=== PATIENT | male | born 1950 | race Caucasian/White ===

== ENCOUNTER 2018-11-04 18:29 | Inpatient (IN) ==
[2018-11-04 19:06] LABS: BASO# 0.02 X1000 (0.0-0.2); BASO% 0.1 % (0.0-0.8); EOS# 0.04 X1000 (0.0-0.7); EOS% 0.2 % (0.0-10.0); HEMOGLOBIN 13.1 g/dL (14.0-18.0); IMM GRAN# 0.06 X1000 (0.0-0.04); IMM GRAN% 0.3 % (0.0-0.5); LYMPH# 0.71 X1000 (1.2-3.4); LYMPH% 3.8 % (20.5-51.1); MCH 30.2 PG (27-31); MCHC 33.6 g/dL (33-37); MCV 89.9 FL (81-99); MONO# 1.01 X1000 (0.11-0.59); MONO% 5.4 % (1.7-9.3); MPV 9.5 FL (7.4-10.4); NEUT# 16.84 X1000 (1.4-6.5); NEUT% 90.2 % (42.2-75.2); PLT 168 X1000 (130-400); RBC 4.34 XMIL (4.7-6.1); RDW 12.5 % (11.5-14.5); WBC 18.68 X1000 (4.8-10.8)
[2018-11-04 19:11] LABS: INR 1.08; PROTIME 14.9 Seconds (11.0-16.0)
[2018-11-04 19:12] LABS: PTT 39.3 Seconds (22.3-41.8)
--- NOTE | 2018-11-04 19:21 | Diag Imaging Result Doc PS360 ---
EXAM: CHEST-2 VIEWS - 11/04/2018 HISTORY: SOB TECHNIQUE: Chest two views COMPARISON: 07/15/2016 portable chest FINDINGS: Heart size is normal. There are stable left upper lobe granuloma and calcified left hilar lymph nodes from old granulomatous disease. There is ill-defined infiltrate at the left lower lobe which is suspicious for pneumonia. The right lung appears clear. There is no substantial pleural effusion or pneumothorax identified. IMPRESSION: Left lower lobe infiltrate suspicious for pneumonia. Electronically signed by Gorge Ribeiro 11/04/2018 7:18 PM
[2018-11-04 19:27] LABS: AGAP 18; ALB/GLOB RATIO 1.4; ALBUMIN 3.9 g/dL (3.5-5.0); ALKALINE PHOSPHATASE 76 U/L (32-122); BUN 20 mg/dL (8-22); CALCIUM 8.4 mg/dL (8.8-10.2); CHLORIDE 92 mmol/L (98-107); CK PROFILE 99 U/L (24-204); COSMO 267; CREATININE 0.9 mg/dL (0.7-1.2); ESTIMATED GFR > 60; GLUCOSE 224 mg/dL (70-104); GOT 14 U/L (10-34); GPT 13 U/L (10-44); POTASSIUM 4.5 mmol/L (3.5-5.1); SODIUM 128 mmol/L (136-145); TCO2 18 mmol/L (25-35); TOTAL BILIRUBIN 0.71 mg/dL (0.20-1.00); TOTAL PROTEIN 6.6 g/dL (6.3-8.3)
[2018-11-04] MEDS ORDERED: ROCEPHIN 2 GM in NS 50 ML IV ONE (19:45)
[2018-11-04] MEDS ORDERED: NS 1,000 ML IV ONE (19:48)
[2018-11-04] MEDS ORDERED: TYLENOL PO ONE (20:46)
--- NOTE | 2018-11-04 20:57 | Diag Imaging Result Doc PS360 ---
EXAM: CT HEAD W/O CONTRAST - 11/04/2018 HISTORY: EXPRESSIVE PHAGIA TECHNIQUE: CT head without contrast COMPARISON: 09/11/2011 FINDINGS: There is no evidence of intracranial hemorrhage, mass effect, midline shift, or hydrocephalus. There is an old small infarct at the right cerebellum similar to prior. There is no evidence of recent infarct, although acute infarcts may not be immediately visible. There is mild paranasal sinus disease noted. IMPRESSION: No visible acute intracranial abnormality. No hemorrhage or mass effect. This exam was performed using automated exposure control, adjustment of mA or kV according to patient size, and/or use of iterative reconstruction technique. Electronically signed by Gorge Ribeiro 11/04/2018 8:54 PM
[2018-11-04 21:00] LABS: URINE SOURCE CLEAN CATCH
[2018-11-04 21:09] LABS: BILIRUBIN URINE NEGATIVE (NEGATIVE); BLOOD URINE SMALL (NEGATIVE); COLOR YELLOW; GLUCOSE URINE NEGATIVE (NEGATIVE); KETONE URINE 20 mg/dL (NEGATIVE); LEUKOCYTES URINE NEGATIVE (NEGATIVE); NITRITE URINE NEGATIVE (NEGATIVE); PROTEIN URINE NEGATIVE (NEGATIVE); TURBIDITY URINE CLEAR (CLEAR); UROBILINOGEN URINE NORMAL (NORMAL)
[2018-11-04 21:11] LABS: UR EPITHELIAL CELLS <10 /HPF (<10); URINE BACTERIA NEGATIVE /HPF; URINE RBC <10 /HPF (<10); URINE WBC <10 /HPF (<10)
--- NOTE | 2018-11-04 22:09 | PROVIDER DOCUMENTATION ---
This chart was entered by Alysia Roberts Scribe, acting as scribe for Edward Khan MD. HPI-Neurological Disorder - General Chief Complaint: Shortness of Breath Stated Complaint: SOB Time Seen by Provider: 11/04/18 19:17 Source: patient, family Allergies/Adverse Reactions: Patient Allergies Allergy/AdvReac Type Severity Reaction Status Date / Time morphine Allergy NAUSEA Verified 10/25/13 13:52 hydromorphone HCl * AdvReac "makes me Verified 07/15/16 10:59 [From Dilaudid] addisony" Home Medications: Home Medication List Medication Instructions Recorded Confirmed Last Taken Type Aspirin 81 mg PO DAILY 11/08/12 07/15/16 07/15/16 History Clopidogrel [Plavix] 75 mg PO DAILY 11/08/12 07/15/16 07/15/16 History Insulin Human Regular [Humulin R] 10 unit SQ AC 11/08/12 07/15/16 07/15/16 History Isosorbide Mononitrate E.r. [Imdur] 30 mg PO DAILY 11/08/12 07/15/16 07/15/16 History Lisinopril/Hydrochlorothiazide 1 each PO BID 11/08/12 07/15/16 07/15/16 History [Lisinopril-Hctz 20-12.5 mg Tab] SIMVAstatin [Zocor] 40 mg PO QHS 11/08/12 07/15/16 07/15/16 History Sertraline [Zoloft] 100 mg PO DAILY 11/08/12 07/16/16 07/15/16 History Insulin Humulin 70/30 [Humulin 15 unit SUBQ BID 07/15/16 07/15/16 07/15/16 History 70/30] Acetaminophen [Tylenol] 650 mg PO Q6H PRN PRN #0 tablet 07/16/16 Unknown Rx Metoprolol [Lopressor] 12.5 mg PO BID 07/16/16 07/16/16 07/14/16 History - History of Present Illness-Neuro Nature of Presenting Problem: 68 yom presents w/ w/co night was on phone with and said "he wasn't making any sense."pt states he could hear but couldn't answer or make complete sentences. pt states episode lasted few hours and that it has never happened before. pt states he "feels bad all over," and was sob but not in er currently. pt has hx of dm, htn, high cholesterol, mix2 and 1 stent. pt is oriented to place and time. Review of Systems - Adult - REVIEW OF SYSTEMS - ADULT Constitutional: reports: no symptoms reported. denies: chills, fever, fatique, night sweats Eyes: reports: no symptoms reported Ears, Nose, Mouth & Throat: reports: no symptoms reported Cardiovascular: reports: no symptoms reported. denies: chest pain Respiratory: reports: see HPI, shortness of breath. denies: chronic cough, cough, dyspnea on exertion, excessive sputum production Gastrointestinal: reports: no symptoms reported Genitourinary: reports: no symptoms reported Musculoskeletal: reports: no symptoms reported Integumentary: reports: no symptoms reported Neurological: reports: see HPI, other (expreseed aphasia). denies: headache/migraines, loss of balance, numbness, paresthesia, seizure, slurred speech, syncope Psychiatric: reports: no symptoms reported Endocrine: reports: no symptoms reported Hematologic/Lymphatic: reports: no symptoms reported Allergic/Immunologic: reports: no symptoms reported All Other Systems: Reviewed and Negative Past History - Adult - PAST MEDICAL HISTORY-ADULT Review of Records: reports: Old Records Reviewed, Nursing Assessment Review, Medications Reviewed, Social history reviewed & non-contributory. Major Childhood Illnesses: reports: denies history Cardiovascular: reports: HTN, hyperlipidemia, [place] (x2) Respiratory: reports: denies history Gastrointestinal: reports: denies history Obstetrical/Gynecological: reports: denies history Genitourinary: reports: denies history Musculoskeletal: reports: denies history Neurological: reports: denies history Endocrine/Immune: reports: Diabetes Other Conditions: reports: denies history - PRIOR SURGERIES/PROCEDURES Surgical/Procedure History: reports: appendectomy, cardiac stent, tonsillectomy - IMMUNIZATION STATUS Childhood Immunizations: See Nurse Assessment Flu Vaccine: See Nurse Assessment - FAMILY HISTORY Family History: reviewed, not pertinent - SOCIAL HISTORY Smoking: non-smoker Substance Use: alcohol Alcohol Use Frequency: occasionally Physical Exam- Neurological - Physical Exam-Neuro Initial Vital Signs Reviewed: Yes General Appearance: appears well, alert, no apparent distress Eye Exam: bilateral eye: normal inspection, PERRL, EOMI HENMT: normocephalic/atraumatic, moist mucous membranes, normal ENT inspection Head Injury: no evidence of injury. negative: active bleeding, Mejia's Sign, contusions, lacerations, raccoon eyes Neck: non-tender, full range of motion, supple, normal inspection Respiratory: chest non-tender, lungs clear, normal breath sounds Cardiovascular: normal peripheral pulses, regular rate, rhythm Abdominal Exam: normal bowel sounds, non tender, soft Lymphatic: no adenopathy Peripheral Pulses: carotid (R): 2+, carotid (L): 2+ Extremity: normal range of motion, non-tender, normal inspection quality assurance assessor Exam: normal hearing, normal speech, PERRL. negative: abnormal eye position, abnormal gag reflex, abnormal pupil position, abnormal speech, facial asymmetry, facial droop, facial paresthesias, facial weakness, gaze palsy Motor/Sensory: no motor deficit, no sensory deficit, no pronator drift. negative: pronator drift (R), pronator drift (L), sensory deficit, weak motor strength RLE, weak motor strength LLE Neurologic: quality assurance assessor II-XII nml as tested, grossly normal, no motor/sensory deficits. negative: abnormal cerebellar tests, abnormal quality assurance assessor II-XII, aphasia, EOM palsy, facial droop, focal weakness Integumentary: normal color, normal turgor, warm/dry Psych/Mental Status: normal mood/affect, normal thought content, normal thought process, oriented x 3 - Glascow Coma Scale Best Eye Response: (4) open spontaneously Best Verbal Response: (5) oriented Best Motor Response: (6) obeys commands Total Glascow Score: 15 Progress - PLAN OF CARE/RESULTS Progress/Plan/Lab Results: Vital Signs - 8 hr 11/04/18 18:37 Temperature 99.3 F Pulse Rate 65 Respiratory Rate 20 Blood Pressure 120/69 O2 Sat by Pulse Oximetry 96 11/04/18 18:39 Influenza Screen - Final Nasopharyngeal Laboratory Results - last 24 hr 11/04/18 11/04/18 11/04/18 18:47 18:47 18:47 WBC 18.68 H RBC 4.34 L Hgb 13.1 L Hct 39.0 L MCV 89.9 MCH 30.2 MCHC 33.6 RDW Std Deviation 12.5 Plt Count 168 MPV 9.5 Immature Gran % (Auto) 0.3 Neut % (Auto) 90.2 H Lymph % (Auto) 3.8 L Jenkins % (Auto) 5.4 Eos % (Auto) 0.2 Baso % (Auto) 0.1 Immature Gran # (Auto) 0.06 H Neut # (Auto) 16.84 H Lymph # (Auto) 0.71 L Jenkins # (Auto) 1.01 H Eos # (Auto) 0.04 Baso # (Auto) 0.02 PT INR PTT (Actin FS) Sodium 128 L Potassium 4.5 Chloride 92 L Carbon Dioxide 18 L Anion Gap 18 BUN 20 Creatinine 0.9 Estimated GFR/1.73 m2 > 60 BUN/Creatinine Ratio 22 Glucose 224 H Calculated Osmolality 267 Calcium 8.4 L Total Bilirubin 0.71 AST 14 ALT 13 Alkaline Phosphatase 76 Creatine Kinase 99 Troponin T Zka-[id number]-Ytbhmjgaexu Pept 498 H Total Protein 6.6 Albumin 3.9 Globulin 2.7 Albumin/Globulin Ratio 1.4 Urine Source Urine Color Urine Turbidity Urine pH Ur Specific [place] Urine Protein Ur Glucose (Stick) Ur Ketones (Stick) Urine Blood Urine Nitrite Urine Bilirubin Urobilinogen Dipstick Urine Leukocytes Urine WBC (Auto) Urine RBC (Auto) U Epithel Cells (Auto) Urine Bacteria (Auto) 11/04/18 11/04/18 11/04/18 18:47 18:47 20:50 WBC RBC Hgb Hct MCV MCH MCHC RDW Std Deviation Plt Count MPV Immature Gran % (Auto) Neut % (Auto) Lymph % (Auto) Jenkins % (Auto) Eos % (Auto) Baso % (Auto) Immature Gran # (Auto) Neut # (Auto) Lymph # (Auto) Jenkins # (Auto) Eos # (Auto) Baso # (Auto) PT 14.9 INR 1.08 PTT (Actin FS) 39.3 Sodium Potassium Chloride Carbon Dioxide Anion Gap BUN Creatinine Estimated GFR/1.73 m2 BUN/Creatinine Ratio Glucose Calculated Osmolality Calcium Total Bilirubin AST ALT Alkaline Phosphatase Creatine Kinase Troponin T < 0.010 Itt-X-Gzpwqqkecng Pept Total Protein Albumin Globulin Albumin/Globulin Ratio Urine Source CLEAN CATCH Urine Color YELLOW Urine Turbidity CLEAR Urine pH 5.0 Ur Specific [place] 1.000 Urine Protein NEGATIVE Ur Glucose (Stick) NEGATIVE Ur Ketones (Stick) 20 A Urine Blood SMALL A Urine Nitrite NEGATIVE Urine Bilirubin NEGATIVE Urobilinogen Dipstick NORMAL Urine Leukocytes NEGATIVE Urine WBC (Auto) <10 Urine RBC (Auto) <10 U Epithel Cells (Auto) <10 Urine Bacteria (Auto) NEGATIVE Orders Category Date Time Status Cardiac Monitoring DIRECTED Care 11/04/18 18:44 Active Oxygen Therapy- ED Nursing DIRECTED Care 11/04/18 18:44 Active Saline Loc NOW Care 11/04/18 18:44 Active CHEST-2 VIEWS [RAD] Stat Exams 11/04/18 18:[address] HEAD W/O CONTRAST [CT] Stat Exams 11/04/18 19:46 Completed BLOOD CULTURE [BLDCUL] Stat Lab 11/04/18 18:00 Results CBC WITH ELECTRONIC DIFF [HEME] Stat Lab 11/04/18 18:47 Completed CK PROFILE [SP CHEM] Stat Lab 11/04/18 18:47 Completed COMPREHENSIVE METABOLIC PANEL [CHEM] Stat Lab 11/04/18 18:47 Completed INFLUENZA SCREEN A/B Stat Lab 11/04/18 18:39 Completed LEGIONELLA AG URINE [[place]] Stat Lab 11/04/18 20:50 Received PRO B-NATRIURETIC PEPTIDE Stat Lab 11/04/18 18:47 Completed PROCALCITONIN [[place]] Stat Lab 11/04/18 18:47 Received PROTIME WITH INR [[place]AG] Stat Lab 11/04/18 18:47 Completed PTT [COAG] Stat Lab 11/04/18 18:47 Completed SPUTUM CULTURE WITH GRAM STAIN [] Stat Lab 11/04/18 19:47 Uncollected STREP PNEUMO AG URINE [[place]] Stat Lab 11/04/18 20:50 Received TROPONIN T Stat Lab 11/04/18 18:47 Completed URINALYSIS W/POSS RFLX CULT [URINALYSIS] Stat Lab 11/04/18 20:50 Completed 0.9% Sodium Chloride Inj [Ns] 1,000 ml Med 11/04/18 19:48 Discontinued IV 999 mls/hr Acetaminophen [Tylenol] Med 11/04/18 20:46 Discontinued 650 mg PO NOW ONE CefTRIAXONE [Rocephin] 2 gm Med 11/04/18 19:45 Discontinued 0.9% Sodium Chloride Inj [Ns] 50 ml IV NOW CP/SOB/Palp >45 yrs of Age Stat Oth 11/04/18 18:44 Ordered Flu-Like Symptoms Stat Oth 11/04/18 18:40 Ordered EKG [EKG] Stat Ther 11/04/18 18:44 Ordered Result Diagrams: 11/04/18 18:47 11/04/18 18:47 - REASSESSMENT Reassessment #1 Time Reassessed: 22:08 Status: other (SPOKE TO DR. TITUS REGARDING THIS PATIENT WHO HAD EXPRESSIVE APHAGIA THIS PAST TUESDAY AND FOUND TO HAVE PNA. APPRECIATE DR. ARIELA DENISANC.E) - XRAY 1 XRAY: Bilateral XRAY Study: Chest (EXAM: CHEST-2 VIEWS - 11/04/2018 HISTORY: SOB TECHNIQUE: Chest two views COMPARISON: 07/15/2016 portable chest FINDINGS: Heart size is normal. There are stable left upper lobe granuloma and calcified left hilar lymph nodes from old granulomatous disease. There is ill-defined infiltrate at the left lower lobe which is suspicious for pneumonia. The right lung appears clear. There is no substantial pleural effusion or pneumothorax identified. IMPRESSION: Left lower lobe infiltrate suspicious for pneumonia. Electronically signed by [employer] 11/04/2018 7:18 PM) Impression: Abnormal Comparison with other Films: changes noted - CT/MRI 1 CT Study: Head (EXAM: CT HEAD W/O CONTRAST - 11/04/2018 HISTORY: EXPRESSIVE PHAGIA TECHNIQUE: CT head without contrast COMPARISON: 09/11/2011 FINDINGS: There is no evidence of intracranial hemorrhage, mass effect, midline shift, or hydrocephalus. There is an old small infarct at the right cerebellum similar to prior. There is no evidence of recent infarct, although acute infarcts may not be immediately visible. There is mild paranasal sinus disease noted. IMPRESSION: No visible acute intracranial abnormality. No hemorrhage or mass effect. This exam was performed using automated exposure control, adjustment of mA or kV according to patient size, and/or use of iterative reconstruction technique. Electronically signed by [employer] 11/04/2018 8:54 PM) Comparison with other Films: changes noted Departure - Departure Date of Disposition Decision: 11/04/18 Time of Disposition Decision: 22:09 DIAGNOSIS: Pneumonia, Neutrophilic leukocytosis, Expressive aphasia Disposition: ADMITTED INPATIENT 09 Certified Medical Emergency: Emergent Condition: Stable Referrals and Follow-Ups: Sherwin Araujo MD [Primary Care Provider] - - Critical Care Note This patient required my direct & personal management of CC.: No Attestation - Physician/ MARK Attestation Patient care was provided by Advanced Practice Provider:: No The physician spent face to face time with patient:: Yes Advanced Practice Provider documentation review:: Supervising physician onsite and consulted in the evaluation and care of this patient. The physician did have a face to face encounter with the patient. - NIH Stroke Scale NIH Type: Initial Evaluation Level of Consciousness: 0-Alert LOC Questions (ask month and age): 0-Answers Both Correctly LOC Commands (ask to open & close eyes;make a fist, let go): 0-Obeys Both Correctly Best Gaze (horizontal eye movement): 0-Normal Visual (use finger movement, counting or visual threat): 0-No Visual Loss Facial Palsy (show teeth or raise eyebrows & close eyes tght: 0-Symmetrical Mov ement Motor Function-left arm: 0-Normal Motor Function-right arm: 0-Normal Motor Function-left le-Normal Motor Function-right le-Normal Limb Ataxia(rnddfd-wvjh-nlixjb, or heel to lima): 0-No Ataxia Sensory(pin prick to face,arms,trunk,legs-compare side/side): 0-No Ataxia Best Language(name item/read sentence.Ex-Down to Earth): 0-No Aphasia Extinction and Inattention: 0-Normal Modified [place] Score Criteria: 0-no symptoms This chart was documented by the indicated scribe, (Alysia Roberts, Scribe) and accurately reflects the services I performed and decisions made by me, Edward Khan MD, as attested by the provider's signature.
[2018-11-04] MEDS ORDERED: ZOFRAN IV PRN (22:41)
[2018-11-04] MEDS ORDERED: DOXYCYCLINE 100 MG in NS 250 ML IV SCH (22:45)
--- NOTE | 2018-11-05 00:21 | HISTORY AND PHYSICAL ---
PRIMARY CARE PROVIDER: Sherwin Araujo. CHIEF COMPLAINT: Shortness of breath. HISTORY OF PRESENT ILLNESS: Mr. Yang is a 68-year-old male who has a past medical history of diabetes mellitus type 2, hypertension, hyperlipidemia, coronary artery disease, status post DE with cardiac stenting times 2 and previous CVA, who comes in with a complaint of feeling bad all over. Apparently, on night he was on the phone with his and per the he was not making any sense. Patient states that he could hear what she was saying but was unable to answer in complete sentences. Patient's stated that it lasted a couple of hours and then resolved. The patient states that he had just overall feelings of fatigue. He denied any type of related symptoms such as chest pain, visual changes, headache, nausea, vomiting. He did have complaint of diarrhea times 1 episode 1 day ago. He denies polydipsia, polyphagia or polyuria. Just an overall feeling of not feeling well. Chest x-ray in the ER showed a left lower lobe infiltrate suspicious for pneumonia. The patient will be admitted for further evaluation and treatment. PAST MEDICAL HISTORY: See HPI. 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 SOCIAL HISTORY: Lives at home with his . No tobacco or illicit drug use. He occasionally uses alcohol. FAMILY HISTORY: Positive for coronary artery disease in both parents. ALLERGIES: Morphine and hydromorphone. HOME MEDICATIONS: A list of home medications has not been reconciled. The patient takes Zocor, Humulin 70/30, Humulin R, Plavix, and aspirin and Imdur. I am unsure on the dosing. An order was placed for Nursing to reconcile home medications. This may not be an all inclusive list. REVIEW OF SYSTEMS: Fourteen point review of systems conducted with the patient. Pertinent positives listed above in the HPI. All other systems reviewed and found to be negative. PHYSICAL EXAMINATION: VITAL SIGNS: Temperature 99.3, pulse 65, respirations 20, blood pressure 120/69, oxygen saturation 96% on room air. GENERAL: A pleasant 68-year-old male lying in the ER stretcher, answers all questions appropriately, is alert and oriented times 3. HEENT: Head is atraumatic, normocephalic. Pupils equal, round, reactive to light. Extraocular eye movement intact. Sclerae are anicteric. Conjunctiva is pink. Oral mucosa is mildly dry. NECK: Supple. No JVD. No thyromegaly. Trachea is midline. No cervical lymphadenopathy. CARDIAC: S1, S2 appreciated. No murmurs, gallops, rubs. LUNGS: Decreased right greater than left. No rhonchi, wheezes, rales. Symmetric rise and fall with respirations. ABDOMEN: Soft, nondistended, nontender. Bowel sounds present all 4 quadrants. No pulsatile mass. No organomegaly. EXTREMITIES: Left xusxs-adg-okgmn amputation of upper extremity. All other extremities no clubbing, cyanosis or edema. Two-plus pedal pulses. SKIN: Warm, dry, intact. No acute lesions or rash. Appropriate color for race. Mild tenting of skin. DIAGNOSTIC DATA: CT of the head shows old small infarct in the right cerebellum similar to prior examination on 09/11/2011. Otherwise, no acute intracranial process. Chest x- ray: Left lower lobe infiltrate suspicious for pneumonia. LABORATORY DATA: WBC 18.68. Hemoglobin 13.1. Hematocrit 39. Platelet count 168. Sodium 128. Potassium 4.5. Chloride 92. Carbon dioxide 18. BUN 224. Urine unremarkable. ASSESSMENT AND PLAN: 1. Community-acquired pneumonia. We will treat with doxycycline and Rocephin. Patient denies any shortness of breath or cough at this time. 2. Diabetes mellitus type 2, now insulin dependent. We will put on sliding scale insulin with fingerstick blood sugars and restart home insulins when dosing is available. We will defer that to his primary care provider. 3. Questionable subacute transient ischemic attack. Apparently, patient had expressive aphasia on this previous . He is a known vasculopath. We will order an echo and carotid ultrasound. We will defer MRI to his primary care provider. 4. Hyperlipidemia. Recommend possible change to high dose atorvastatin from simvastatin. 5. Coronary artery disease status post myocardial infarction. Continue Plavix and aspirin. 6. Hypertension. We will continue home medications when medications are added to patient profile. Further recommendations per patient clinical course. Dictated by YOSEPH Francis for Maximino Rangel MD I have performed a face to face diagnostic evaluation. Labs/ Xrays - reviewed. Exam- chest - rhonchi, CV- regular A/P- Pneumonia- Admit patient, IV ABX Dr. Rangel cc: YOSEPH Francis MD Robert Allen, MD MTDD
[2018-11-05] MEDS: NS 1,000 ML IV SCH ×2 (01:53→20:00)
[2018-11-05] MEDS: HUMALOG SUBQ SCH ×8 (02:16→23:17)
[2018-11-05] MEDS: TYLENOL PO PRN ×4 (05:58→23:17)
[2018-11-05 07:16] LABS: BASO# 0.01 X1000 (0.0-0.2); BASO% 0.1 % (0.0-0.8); EOS# 0.02 X1000 (0.0-0.7); EOS% 0.1 % (0.0-10.0); HEMATOCRIT 34.3 % (42.0-52.0); HEMOGLOBIN 11.5 g/dL (14.0-18.0); IMM GRAN# 0.03 X1000 (0.0-0.04); IMM GRAN% 0.2 % (0.0-0.5); LYMPH# 0.77 X1000 (1.2-3.4); LYMPH% 5.5 % (20.5-51.1); MCH 30.3 PG (27-31); MCHC 33.5 g/dL (33-37); MCV 90.5 FL (81-99); MONO# 0.68 X1000 (0.11-0.59); MONO% 4.9 % (1.7-9.3); MPV 9.8 FL (7.4-10.4); NEUT# 12.43 X1000 (1.4-6.5); NEUT% 89.2 % (42.2-75.2); PLT 160 X1000 (130-400); RBC 3.79 XMIL (4.7-6.1); RDW 12.7 % (11.5-14.5); WBC 13.94 X1000 (4.8-10.8)
[2018-11-05 07:28] LABS: BANDS 4 % (0-1); LYMPHS 6 % (21-51); MONO 2 % (1-9); SEGS 88 % (42-75)
[2018-11-05 07:46] LABS: AGAP 17; BUN 16 mg/dL (8-22); CALCIUM 7.8 mg/dL (8.8-10.2); CHLORIDE 99 mmol/L (98-107); COSMO 269; CREATININE 0.8 mg/dL (0.7-1.2); ESTIMATED GFR > 60; GLUCOSE 161 mg/dL (70-104); POTASSIUM 4.2 mmol/L (3.5-5.1); SODIUM 132 mmol/L (136-145); TCO2 16 mmol/L (25-35)
[2018-11-05] MEDS: ASPIRIN PO SCH (09:51)
[2018-11-05] MEDS: PLAVIX PO SCH (09:51)
[2018-11-05] MEDS ORDERED: PNEUMOVAX 23 IM ONE (13:25)
--- NOTE | 2018-11-05 13:46 | PROGRESS NOTE ---
DATE: 11/05/2018 VITAL SIGNS: Temperature 102.9, respiration 76, blood pressure 130/44, O2 saturation on room air 95%. LABORATORY: Hemoglobin 11.5, hematocrit 34.3, white blood count 13,900 with 89% neutrophils. HISTORY: This is one of a few [facility] admissions for this 68-year-old white man who had fever for the past few days. He presented to the emergency room late last evening and chest x-ray revealed left lower lobe pneumonia. He was admitted in 2016 with pneumonia and treated with doxycycline and Rocephin. Flu tests were negative. Sputum culture and blood cultures were done. Legionella titer was obtained. He is placed on doxycycline and Rocephin. There also were some symptoms of a TIA prior to admission. Echocardiogram and carotid Dopplers have been ordered. PLAN: Continue antibiotics and await studies, laboratory and radiologic studies. cc: Sherwin Araujo MD
[2018-11-05] MEDS: DOXYCYCLINE 100 MG in NS 250 ML IV SCH ×2 (15:01→23:17)
[2018-11-05] MEDS: ROCEPHIN 1 GM in NS 50 ML IV SCH (20:00)
[2018-11-05] MEDS: ZOCOR PO SCH (20:01)
--- NOTE | 2018-11-06 02:11 | ECHO REPORT ---
ORDER DATE: 11/05/2018 MEASUREMENTS: Septal thickness 0.9, left ventricular internal diameter in diastole 4.4, posterior wall thickness 0.9, left ventricular internal diameter in systole 2.5. SUMMARY: 1. Adequate quality study. 2. The aortic valve is trileaflet and demonstrates mild sclerotic change particularly of the left coronary cusp. The aortic valve opening is adequate. Peak gradient across the aortic valve is 19 mmHg with a mean gradient of 10 mmHg. The aortic valve area by planimetry is 1.8 cm2. Very mild aortic stenosis is suggested. Mitral, tricuspid and pulmonic valves are without evidence of structural abnormality with mild mitral regurgitation and trace tricuspid regurgitation. The aortic root is normal in size. 3. Normal left ventricular dimensions is demonstrated. The left ventricle appears hyperdynamic with an estimated left ejection fraction greater than 70%. No regional wall motion abnormality is evident. The left atrium is mildly enlarged. The right atrium and right ventricle are normal in size with preserved right ventricular systolic function. 4. No pericardial effusion. 5. Appearance of the inferior vena cava suggests normal central venous pressure. cc: MD Bethel Dang CRNP Robert Allen, MD
[2018-11-06] MEDS: HUMALOG SUBQ SCH ×2 (05:44→05:58)
[2018-11-06] MEDS: TYLENOL PO PRN ×2 (05:54→20:16)
[2018-11-06] MEDS: PLAVIX PO SCH (08:19)
[2018-11-06] MEDS: ASPIRIN PO SCH (08:19)
[2018-11-06] MEDS: IMDUR PO SCH (08:25)
[2018-11-06] MEDS: LOPRESSOR PO SCH ×2 (08:25→20:16)
[2018-11-06] MEDS: ZOLOFT PO SCH (08:25)
--- NOTE | 2018-11-06 08:27 | EKG Report ---
Test Performed on : 11/04/2018 6:33:52 PM Test Reason : SOB Blood Pressure : / mmHG Vent. Rate : 066 BPM Atrial Rate : 066 BPM P-R Int : 122 ms QRS Dur : 082 ms QT Int : 412 ms P-R-T Axes : 022 022 040 degrees QTc Int : 431 ms Normal sinus rhythm. Normal ECG When compared with ECG of 16-JUL-2016 07:31, No significant change was found Unconfirmed Result
--- NOTE | 2018-11-06 08:56 | PROGRESS NOTE ---
DATE: 11/06/2018 VITAL SIGNS: Temperature 99.2 degrees, heart rate 68, respirations 17, blood pressure 129/48, O2 saturation on room air of 97%. LABORATORY: Blood sugar up to 319 last evening and 288 this morning. OBJECTIVE: Chest is clear to auscultation. Blood cultures reveal no growth at 48 hours. Echocardiogram shows minimal aortic stenosis and ejection fraction of 70%. PLAN: Continue intravenous doxycycline and Rocephin. Chest x-ray will be repeated tomorrow morning. Carotid ultrasound is pending. He has had no further syncopal episodes or dizziness. He complains with right ankle ganglion cyst. This is moderate size and not inflamed but tender. This will be aspirated in the office after discharge. cc: Sherwin Araujo MD
[2018-11-06] MEDS: HUMULIN 70/30 SUBQ SCH ×2 (09:54→16:38)
[2018-11-06] MEDS: NS 1,000 ML IV SCH ×2 (10:51→21:58)
[2018-11-06] MEDS: HUMULIN R SUBQ SCH ×2 (10:51→16:38)
[2018-11-06] MEDS: DOXYCYCLINE 100 MG in NS 250 ML IV SCH ×2 (10:52→21:59)
[2018-11-06] MEDS ORDERED: HUMULIN R SUBQ SCH (11:00)
[2018-11-06] MEDS: MOTRIN PO PRN (14:21)
[2018-11-06] MEDS: ROCEPHIN 1 GM in NS 50 ML IV SCH (20:16)
[2018-11-06] MEDS: ZOCOR PO SCH (20:16)
[2018-11-07] MEDS: MOTRIN PO PRN ×3 (03:12→21:03)
[2018-11-07] MEDS: HUMULIN R SUBQ SCH ×3 (06:16→18:13)
[2018-11-07] MEDS: NS 1,000 ML IV SCH ×3 (06:34→22:40)
[2018-11-07] MEDS: HUMULIN 70/30 SUBQ SCH ×2 (06:34→17:08)
[2018-11-07 07:46] LABS: BASO# 0.04 X1000 (0.0-0.2); BASO% 0.2 % (0.0-0.8); EOS# 0.14 X1000 (0.0-0.7); EOS% 0.8 % (0.0-10.0); HEMATOCRIT 38.4 % (42.0-52.0); HEMOGLOBIN 13.2 g/dL (14.0-18.0); IMM GRAN% 0.6 % (0.0-0.5); LYMPH# 0.96 X1000 (1.2-3.4); LYMPH% 5.6 % (20.5-51.1); MCH 30.6 PG (27-31); MCHC 34.4 g/dL (33-37); MCV 88.9 FL (81-99); MONO# 1.31 X1000 (0.11-0.59); MONO% 7.6 % (1.7-9.3); MPV 9.3 FL (7.4-10.4); NEUT# 14.64 X1000 (1.4-6.5); NEUT% 85.2 % (42.2-75.2); PLT 194 X1000 (130-400); RBC 4.32 XMIL (4.7-6.1); WBC 17.19 X1000 (4.8-10.8)
--- NOTE | 2018-11-07 07:53 | Diag Imaging Result Doc PS360 ---
EXAM: CHEST-2 VIEWS INDICATION: pneumonia TECHNIQUE: 2 views COMPARISON: 11/04/2018 FINDINGS: Left lower lobe pneumonia is again noted. It has increased in density as compared to the previous study. No other new consolidations are identified. Cardiac silhouette is stable. IMPRESSION: Worsening of left lower lobe pneumonia. Electronically signed by Tristen Roberts 11/07/2018 7:51 AM
[2018-11-07 08:00] LABS: EOS 1 % (1-10); LYMPHS 5 % (21-51); MONO 7 % (1-9); SEGS 87 % (42-75)
--- NOTE | 2018-11-07 08:37 | PROGRESS NOTE ---
DATE: 11/07/2018 SUBJECTIVE: Maximum temperature in the last 12 hours was 100.1. Temperature this morning is 98.2, heart rate 71, respirations 22, blood pressure 141/55, and O2 saturation on room air 97%. Chest x-ray shows increasing left lower lobe infiltrate and worsening of pneumonia. White blood count is up some at 17,000. He is eating fairly well. Blood cultures revealed no growth at 48 hours. OBJECTIVE: Lungs reveal slightly decreased breath sounds at the left base, but no rales. Abdomen is soft. PLAN: Change antibiotics to Levaquin. Doxycycline and Rocephin are discontinued. Legionella titer is pending. Also nebulizer treatments with albuterol and Atrovent are added q.i.d. cc: Sherwin Araujo MD
[2018-11-07] MEDS: LOPRESSOR PO SCH ×2 (09:16→21:03)
[2018-11-07] MEDS: IMDUR PO SCH (09:17)
[2018-11-07] MEDS: PLAVIX PO SCH (09:17)
[2018-11-07] MEDS: ASPIRIN PO SCH (09:17)
[2018-11-07] MEDS: ZOLOFT PO SCH (09:17)
[2018-11-07] MEDS: LEVAQUIN 750 MG in NS 150 ML IV SCH (09:30)
[2018-11-07] MEDS: DUONEB (A & A) INH SCH ×3 (10:00→20:17)
[2018-11-07] MEDS: TYLENOL PO PRN ×2 (12:13→17:56)
--- NOTE | 2018-11-07 15:16 | Carotid Study ---
DATE: 11/05/2018 PROCEDURE: Bilateral carotid ultrasound. REQUESTING PHYSICIAN: Lazaro Umanzor MD INTERPRETING PHYSICIAN: Wade Lord MD TECH: Stephanie Bloom RVT INDICATIONS: TIA with speech problems. EQUIPMENT: [employer] E9 Ultrasound System with a 9L-D transducer. OBSERVED DATA RIGHT LEFT Brachial Blood Pressure Carotid Pulse Bruits: Carotid/Sub DIAGRAM OF ULTRASOUND IMAGING R L RIGHT INT EXT INT EXT LEFT Andre (cm/s) Andre (cm/s) Subclavian 116/0 Subclavian 117/0 CCA Proximal 74/11 CCA Proximal 86/14 CCA Distal 73/15 CCA Distal 107/21 Bulb 78/16 Bulb 125/20 ICA Proximal 66/19 ICA Proximal 95/21 ICA Mid 82/24 ICA Mid 74/21 ICA Distal 88/23 ICA Distal 86/26 ECA 100/7 ECA 125/4 Vertebral 59/16 A Vertebral 40/11 A ICA/CCA Ratio 1.19 ICA/CCA Ratio 0.89 % Stenosis 0%-39% % Stenosis 0%-39% FINDINGS: Minimal atherosclerosis which at this time does not produce hemodynamically significant flow-limiting stenosis. Both vertebral arteries are antegrade flow. cc: MD Bethel Cassidy CRNP Robert Allen, MD
[2018-11-07] MEDS ORDERED: INSULIN PEN NEEDLES ONE (17:19)
[2018-11-07] MEDS: HUMALOG SUBQ SCH (21:03)
[2018-11-07] MEDS: ZOCOR PO SCH (21:03)
[2018-11-08] MEDS: TYLENOL PO PRN ×3 (00:16→20:55)
[2018-11-08] MEDS: MOTRIN PO PRN ×3 (01:51→22:43)
[2018-11-08] MEDS: DUONEB (A & A) INH SCH ×4 (03:48→21:10)
[2018-11-08] MEDS: HUMULIN 70/30 SUBQ SCH ×2 (06:34→16:54)
[2018-11-08] MEDS: HUMALOG SUBQ SCH ×4 (06:35→21:02)
--- NOTE | 2018-11-08 07:59 | PROGRESS NOTE ---
DATE: 11/08/2018 SUBJECTIVE: Vital signs stable with temperature 97.5 degrees, heart rate 71, respiration 18, blood pressure 134/55, O2 saturation on room air 95%. The patient seems to be improving. He still has some cough and shortness of breath. There is mild whitish sputum production. Decreased breath sounds persisted at the left base. PLAN: Repeat CBC tomorrow morning. cc: Sherwin Araujo MD
[2018-11-08] MEDS: ASPIRIN PO SCH (08:37)
[2018-11-08] MEDS: ZOLOFT PO SCH (08:37)
[2018-11-08] MEDS: LOPRESSOR PO SCH ×2 (08:37→20:55)
[2018-11-08] MEDS: IMDUR PO SCH (08:37)
[2018-11-08] MEDS: PLAVIX PO SCH (08:37)
[2018-11-08] MEDS: LEVAQUIN 750 MG in NS 150 ML IV SCH (08:38)
[2018-11-08] MEDS: NS 1,000 ML IV SCH (13:10)
[2018-11-08] MEDS: ZOCOR PO SCH (20:55)
[2018-11-09] MEDS: NS 1,000 ML IV SCH ×2 (02:30→18:06)
[2018-11-09] MEDS: MOTRIN PO PRN ×2 (02:32→16:51)
[2018-11-09] MEDS: DUONEB (A & A) INH SCH ×4 (03:17→21:10)
[2018-11-09] MEDS: HUMALOG SUBQ SCH ×4 (06:12→20:54)
[2018-11-09] MEDS: HUMULIN 70/30 SUBQ SCH ×2 (06:12→16:57)
[2018-11-09 06:18] LABS: BASO# 0.03 X1000 (0.0-0.2); BASO% 0.2 % (0.0-0.8); EOS# 0.48 X1000 (0.0-0.7); EOS% 3.6 % (0.0-10.0); HEMATOCRIT 32.9 % (42.0-52.0); HEMOGLOBIN 11.2 g/dL (14.0-18.0); IMM GRAN# 0.12 X1000 (0.0-0.04); IMM GRAN% 0.9 % (0.0-0.5); LYMPH# 0.94 X1000 (1.2-3.4); LYMPH% 7.1 % (20.5-51.1); MCH 30.2 PG (27-31); MCV 88.7 FL (81-99); MONO# 0.82 X1000 (0.11-0.59); MONO% 6.2 % (1.7-9.3); MPV 9.2 FL (7.4-10.4); NEUT# 10.93 X1000 (1.4-6.5); PLT 274 X1000 (130-400); RBC 3.71 XMIL (4.7-6.1); WBC 13.32 X1000 (4.8-10.8)
[2018-11-09 06:28] LABS: AGAP 17; ALB/GLOB RATIO 0.7; ALBUMIN 2.3 g/dL (3.5-5.0); ALKALINE PHOSPHATASE 101 U/L (32-122); BUN 12 mg/dL (8-22); CALCIUM 8.2 mg/dL (8.8-10.2); CHLORIDE 108 mmol/L (98-107); COSMO 287; CREATININE 0.6 mg/dL (0.7-1.2); ESTIMATED GFR > 60; GLUCOSE 174 mg/dL (70-104); GOT 142 U/L (10-34); GPT 79 U/L (10-44); MAGNESIUM 1.7 mg/dL (1.5-2.7); POTASSIUM 3.6 mmol/L (3.5-5.1); SODIUM 142 mmol/L (136-145); TCO2 17 mmol/L (25-35); TOTAL BILIRUBIN 0.44 mg/dL (0.20-1.00); TOTAL PROTEIN 5.7 g/dL (6.3-8.3)
[2018-11-09] MEDS ORDERED: LANOXIN IV ONE (07:29)
[2018-11-09] MEDS ORDERED: CARDIZEM LA PO ONE (07:30)
--- NOTE | 2018-11-09 07:37 | EKG Report ---
Test Performed on : 11/09/2018 05:38:26 AM Test Reason : Tachycardia Blood Pressure : / mmHG Vent. Rate : 138 BPM Atrial Rate : 150 BPM P-R Int : 000 ms QRS Dur : 088 ms QT Int : 298 ms P-R-T Axes : 000 012 241 degrees QTc Int : 451 ms Atrial fibrillation. with rapid ventricular response. with premature ventricular or aberrantly conduc panchito complexes. ST depression, consider subendocardial injury Nonspecific T wave abnormality Abnormal ECG When compared with ECG of 04-NOV-2018 18:33, (Unconfirmed) Significant changes have occurred Confirmed by Aruna BROWN, Ulysses ([id number]) on 11/09/2018 8:53:35 AM
--- NOTE | 2018-11-09 07:54 | PROGRESS NOTE ---
DATE: 11/09/2018 VITAL SIGNS: Temperature 98.2 degrees, heart rate irregular and 120, respirations 20, blood pressure 152/87, O2 saturation on 2 liters nasal oxygen 99%. LABORATORY: Hemoglobin 11.2, hematocrit 32.9, white blood count 13,300. IMAGING: EKG: Atrial fib. SUBJECTIVE: Patient was doing well until early this morning when he developed a rapid heart rate and palpitations. EKG was done revealing atrial fibrillation. The patient seems to be doing well otherwise. OBJECTIVE: Heart: Irregular in rate and rhythm. Lungs: Reveal decreased breath sounds at the left base, unchanged. PLAN: Attempt conversion of atrial fibrillation with medication. If his atrial fibrillation persists by this afternoon, he will need some anticoagulant and possibly Cardiology consult. cc: Sherwin Araujo MD
[2018-11-09] MEDS: LEVAQUIN 750 MG in NS 150 ML IV SCH (08:27)
[2018-11-09] MEDS: ASPIRIN PO SCH (08:28)
[2018-11-09] MEDS: ZOLOFT PO SCH (08:28)
[2018-11-09] MEDS: IMDUR PO SCH (08:28)
[2018-11-09] MEDS: PLAVIX PO SCH (08:28)
[2018-11-09] MEDS: LOPRESSOR PO SCH ×2 (08:28→16:51)
[2018-11-09] MEDS: TYLENOL PO PRN ×2 (14:04→22:25)
--- NOTE | 2018-11-09 14:51 | Diag Imaging Result Doc PS360 ---
CT THORAX W/O CONTRAST - 11/09/2018 INDICATION: left lower lobe pneumonia/atrial fibrillation COMPARISON: 11/07/2018, 07/15/2016 FINDINGS: There is dense consolidation of the left lower lobe with air bronchograms compatible with pneumonia. There are trace bilateral pleural effusions that are symmetric. There is also a trace pericardial effusion. Heart size is normal. There is coronary artery disease and anemia present. No adenopathy. Airways are clear. There is right upper lobe infiltrate now that did not appear to be present on the prior chest x-ray. There is severe COPD. Upper abdominal images appear normal. There is severe degeneration of the sternoclavicular joints. There are moderate degenerative changes of the spine. No acute or suspicious bony lesion. IMPRESSION: 1. Severe left lower lobe pneumonia. Right upper lobe pneumonia. 2. Bilateral pleural effusions. 3. Severe COPD. This exam was performed using automated exposure control, adjustment of mA or kV according to patient size, and/or use of iterative reconstruction technique Electronically signed by Lamonte Byrd 11/09/2018 2:48 PM
[2018-11-09] MEDS ORDERED: LOVENOX SUBQ SCH ×2 (15:45→16:48)
[2018-11-09] MEDS ORDERED: CARDIZEM 100 MG/NS 100 MG/100 ML IVPB IV SCH (16:00)
[2018-11-09] MEDS ORDERED: LANOXIN IV SCH (16:00)
--- NOTE | 2018-11-09 16:22 | EKG Report ---
Test Performed on : 11/09/2018 4:06:53 PM Test Reason : afib Blood Pressure : / mmHG Vent. Rate : 063 BPM Atrial Rate : 063 BPM P-R Int : 116 ms QRS Dur : 088 ms QT Int : 434 ms P-R-T Axes : 045 017 034 degrees QTc Int : 444 ms Normal sinus rhythm. Normal ECG When compared with ECG of 09-NOV-2018 05:38, Sinus rhythm. has replaced Atrial fibrillation. Vent. rate has decreased BY [address] no longer depressed in Inferior leads ST no longer depressed in Anterolateral leads Nonspecific T wave abnormality no longer evident in Lateral leads Confirmed by Aruna BROWN, Ulysses ([id number]) on 11/10/2018 12:57:41 PM
[2018-11-09] MEDS: CARDIZEM PO SCH ×2 (16:51→19:49)
--- NOTE | 2018-11-09 18:44 | CARDIOLOGY CONSULTATION ---
DATE: 11/09/2018 CHIEF COMPLAINT: Shortness of breath, irregular heartbeat. HISTORY OF PRESENT ILLNESS: Mr. Yang is a pleasant, 68-year-old, male who presented to the emergency room on the day of admission with complaints of sudden onset of feeling unwell with some dysarthria or even dysphasia, feeling lightheaded and short of breath. Upon presentation on November 04, they did a chest x-ray that showed a left lower lobe infiltrate suspicious for pneumonia. Initial electrocardiogram showed sinus rhythm. Initial white cell count was reported as 18,680. The patient was admitted as a possible case of pneumonia and has been treated with antibiotics, Levaquin 750 mg daily. Over the course of the past 24 hours, he has developed rapid irregular heartbeat consistent with paroxysmal atrial fibrillation. That has led to the consultation. The patient also reports that initially at the time of presentation, he had some chest discomfort like a tightness. The patient has had cough which is relatively dry. PAST HISTORY: Positive for severe coronary heart disease. He has suffered acute myocardial infarction in 2003, treated with tPA, subsequently with coronary intervention. The patient has had question of a stroke in the past. He has had diabetes mellitus for many years, since 1991. He has hyperlipidemia. SURGICAL HISTORY: He had traumatic amputation of the left forearm. He has had polio as a child and required multiple surgeries to correct the deformities. The patient has had a penile prosthesis. REVIEW OF SYSTEMS: The patient has been working as a security system installer. He has been able to perform his duties without difficulty. He has had no recent cardiovascular complaints or pulmonary complaints up until the onset of his symptoms. No gastrointestinal issues. No hematological issues. No neurological or psychiatric illness. No immunological processes or skin disorder, etc. Since the onset of his acute illness, he has developed fever blisters, or herpes simplex of the mouth. His surgical history also includes appendectomy and tonsillectomy in the past. SOCIAL HISTORY: He is , lives with his . He has had 5 children. He quit smoking 30 years ago. Not a drinker. MEDICATIONS: His home medications at the time of the present admission included aspirin 81 daily; Plavix 75 daily; insulin regular 15 units a.c., Humulin 70/30, 20 units a.c.; isosorbide mononitrate 30 at bedtime; lisinopril/hydrochlorothiazide 1 tablet twice a day; metoprolol 12.5 twice a day; sertraline 100 mg daily; simvastatin 40 at bedtime. ALLERGIES: He is allergic to morphine and hydromorphone. PHYSICAL EXAMINATION: Vital signs: Blood pressure is 136/58, pulse 62, temperature 99.1 degrees, respirations 20. General: He is awake, alert, oriented, in no distress. He does have herpes simplex in the mouth, lower lip. HEENT: Otherwise unremarkable. Chest: Diminished breath sounds in the entire left lung. Some dullness to percussion at the left base. Some rhonchi. Heart: The heart sounds are regular and rhythmic at the time of my examination. Atrial fibrillation appears to have converted back to sinus rhythm. Abdomen: Nontender, soft. No masses. No hepatomegaly. Extremities: Show decreased pulses. No peripheral edema. Significant muscle wasting in the lower extremities, probably sequela of the poliomyelitis that he suffered as a child. He also has evidence of amputation of the left forearm. Neurological: Nonfocal. Moves 4 extremities. Mentation and speech are clear. LABORATORY STUDIES: C-reactive protein has been checked and is 344.98. His sedimentation rate is 82 mm/hr. A chest CT shows extensive pneumonic infiltration of the left lung and also a limited infiltration of right middle lobe. There are, in addition, COPD changes including blebs in the upper lobes of both lungs, a pleural effusion in the left lung, and calcification of the coronary arteries. EKG was just done after his conversion at 4:06 p.m., showed sinus rhythm. The EKG basically looks normal. IMPRESSION: 1. Patient with paroxysmal atrial fibrillation. 2. Severe coronary heart disease. Previous myocardial infarction. Previous stent. 3. Question of transient ischemic attack/stroke. 4. Extensive left lower lobe pneumonia plus pneumonia involving the right middle lobe. There is extensive inflammatory process. RECOMMENDATIONS: The patient's atrial fibrillation appears to be triggered by the extensive pneumonic process that is involving the both lungs, more so on the left. At this point in time, I would suggest to give low-dose Cardizem and low-dose beta nima to keep him in sinus rhythm. He has just converted. Because of the fact that he has extensive parenchymal involvement of his lung, I would refrain from giving him full anticoagulation because we could cause pulmonary hemorrhage. I would prefer to have the dye beck reel operator involved in the case to give us some guidance as to what antibiotic coverage may be more effective to deal with this extensive pneumonic process. Cardiac-bowen, I do not anticipate any further intervention. He has had an echocardiogram done on November 05 that showed normal left ventricular systolic function, ejection fraction 70%, with a very trivial degree of aortic sclerosis/stenosis. We will be following him as needed. At this point in time, he is in sinus rhythm. Please call me if you have any questions or concerns. cc: MD Sherwin Morales MD
[2018-11-09] MEDS: ZOCOR PO SCH ×2 (19:49→20:21)
[2018-11-10] MEDS ORDERED: TUSSIONEX LIQUID PO PRN (00:45)
[2018-11-10] MEDS: CARDIZEM PO SCH (01:10)
[2018-11-10] MEDS: LOPRESSOR PO SCH (01:10)
--- NOTE | 2018-11-10 01:57 | ED EKG INTERP ---
This chart was entered by Alysia Roberts Scribe, acting as scribe for Stephan Noyola MD. EKG Interpretation - EKG Time of EKG reading by physician:: 18:33 EKG Read and Signed by:: Stephan Noyola EKG Interpretation (*Must complete 3 of following elements*): Normal Rate: 66 Rhythm: NSR [place]: normal QRS: normal ST Wave: normal Attestation - Physician/ MARK Attestation Patient care was provided by Advanced Practice Provider:: No The physician spent face to face time with patient:: Yes Advanced Practice Provider documentation review:: Supervising physician onsite and consulted in the evaluation and care of this patient. The physician did have a face to face encounter with the patient. This chart was documented by the indicated scribe, (Alysia Roberts Scribe) and accurately reflects the services I performed and decisions made by me, Stephan Noyola MD, as attested by the provider's signature.
[2018-11-10] MEDS: DUONEB (A & A) INH SCH ×4 (03:09→21:07)
[2018-11-10 06:07] LABS: AGAP 13; BUN 12 mg/dL (8-22); CALCIUM 8.3 mg/dL (8.8-10.2); CHLORIDE 109 mmol/L (98-107); COSMO 281; CREATININE 0.6 mg/dL (0.7-1.2); ESTIMATED GFR > 60; GLUCOSE 99 mg/dL (70-104); MAGNESIUM 1.7 mg/dL (1.5-2.7); POTASSIUM 3.9 mmol/L (3.5-5.1); SODIUM 141 mmol/L (136-145); TCO2 19 mmol/L (25-35)
[2018-11-10] MEDS: HUMALOG SUBQ SCH ×4 (06:28→22:00)
[2018-11-10] MEDS: HUMULIN 70/30 SUBQ SCH ×2 (06:29→17:01)
[2018-11-10] MEDS ORDERED: INSULIN PEN NEEDLES ONE (06:34)
--- NOTE | 2018-11-10 07:31 | EKG Report ---
Test Performed on : 11/10/2018 06:27:55 AM Test Reason : afib Blood Pressure : / mmHG Vent. Rate : 056 BPM Atrial Rate : 056 BPM P-R Int : 130 ms QRS Dur : 088 ms QT Int : 460 ms P-R-T Axes : 049 023 033 degrees QTc Int : 443 ms Sinus bradycardia. Otherwise normal ECG When compared with ECG of 09-NOV-2018 16:06, (Unconfirmed) No significant change was found Confirmed by Aruna BROWN, Ulysses ([id number]) on 11/10/2018 1:01:50 PM
--- NOTE | 2018-11-10 08:06 | PROGRESS NOTE ---
DATE: 11/10/2018 VITAL SIGNS: Temperature 98.4 degrees, heart rate 53, respirations 22, blood pressure 124/57, O2 saturation on nasal oxygen 94%. LABORATORY: Sodium 141, potassium 3.9, chloride 109, CO2 19. BUN 13, creatinine 0.6, calcium 8.3, glucose 96. SUBJECTIVE: The patient had moderate coughing last night and some sputum production. Sputum was sent for culture. Blood cultures continued to show no growth. Lungs to auscultation are about the same with decreased breath sounds at the left base. The patient has some fever blisters on his lower lip on the left. PLAN: Discontinue Lovenox and metoprolol. Restart extended release diltiazem 120 mg daily, and Tussionex for cough. He will be ambulated today. If he has an adequate O2 saturation on room air this afternoon, discharge will be considered. cc: Sherwin Araujo MD
[2018-11-10] MEDS: NS 1,000 ML IV SCH (09:38)
[2018-11-10] MEDS: ZOLOFT PO SCH (09:39)
[2018-11-10] MEDS: VALTREX PO SCH ×2 (09:39→22:00)
[2018-11-10] MEDS: IMDUR PO SCH (09:39)
[2018-11-10] MEDS: LEVAQUIN 750 MG in NS 150 ML IV SCH (09:39)
[2018-11-10] MEDS: PLAVIX PO SCH (09:40)
[2018-11-10] MEDS: LANOXIN PO SCH (09:40)
[2018-11-10] MEDS: CARDIZEM CD PO SCH (09:40)
[2018-11-10] MEDS: ASPIRIN PO SCH (09:41)
--- NOTE | 2018-11-10 14:12 | CARDIOLOGY PROGRESS NOTE ---
DATE: 11/10/2018 CHIEF COMPLAINT: Irregular heartbeat, tachycardia, shortness of breath. SUBJECTIVE: Mr. Yang was transferred to [facility], and he has maintained sinus rhythm overnight. His EKG this morning shows normal sinus rhythm with sinus bradycardia at rate 56 beats per minute. It basically looks normal. He is chest pain free. He is eating his breakfast. OBJECTIVE: Temperature is 98.6, pulse 64, respirations 20, blood pressure is 145/52. The patient is awake, alert, oriented, no distress. HEENT is unremarkable. Chest shows diminished breath sounds in the left lung. No definite rales noted. Heart sounds are regular and rhythmic. No gallop or murmur. His abdomen is nontender, soft. No masses. No hepatomegaly. Extremities showed amputation of left upper extremity. Atrophy of muscles of both lower extremities. No edema. Neurologic: Follows commands, moves all 4 extremities. DIAGNOSTIC DATA: White cell count is 13,320. Sodium is 141, potassium 3.9, BUN is 12, creatinine 0.6. Of note, his C-reactive protein was 344.98 mg/L. His sedimentation rate was 82 mm per hour. IMPRESSION: 1. The patient has paroxysmal atrial fibrillation in the midst of extensive left lower lobe pneumonia plus right middle lobe pneumonia. 2. Chronic obstructive pulmonary disease. 3. History of coronary heart disease with previous myocardial infarction. 4. Question of transient ischemic attack, cerebrovascular accident. 5. Sequelae of poliomyelitis. RECOMMENDATIONS: At this point in time, the patient appears to be stable from the cardiac viewpoint. I would suggest to continue present medications including aspirin, clopidogrel, digoxin, diltiazem and low dose metoprolol. We will follow him as needed. At this point in time, he seems to be quite stable from the cardiac viewpoint. We have recommended a Pulmonary consultation because of the severity of his pneumonia. cc: MD Sherwin Morales MD
[2018-11-10] MEDS: TYLENOL PO PRN (16:56)
[2018-11-10] MEDS ORDERED: LASIX IV ONE (17:55)
--- NOTE | 2018-11-10 18:09 | PROGRESS NOTE ---
DATE: 11/10/2018 OBJECTIVE: Vital Signs: Temperature 98.5 degrees, heart rate 75, respirations 16, O2 saturation on 2 liters nasal oxygen 93%, on room air 87%. General: The patient is somewhat dyspneic. Lungs: Lungs sound about the same with mild decrease in breath sounds at the left base. ASSESSMENT: Dr. Zapata was consulted. The patient seems to be slowly improving on current management. Repeat chest x-ray and CBC will be done tomorrow morning. The patient needs to stay in the hospital until he can manage without home O2. cc: Sherwin Araujo MD
--- NOTE | 2018-11-10 20:17 | PULMONOLOGY CONSULTATION ---
DATE: 11/10/2018 REQUESTING PHYSICIAN: Dr. Fish. REASON FOR CONSULTATION: COPD and pneumonia. HISTORY OF PRESENT ILLNESS: Mr. Yang is a 68-year-old white male who was admitted to the hospital 11/05/2018. The patient reports he was doing well until approximately 2 days prior to admission, when he had periods of confusion associated with fevers, chills, and body aches. He delayed being evaluated at the hospital. The patient did present on 11/04/2018 with new onset shortness of breath and "feeling bad all over". He had fever of 102 several times early in admission. Chest x-ray revealed infiltrate at the left base. His course was complicated by paroxysmal atrial fibrillation. He was evaluated by Cardiology and CT scan of the thorax was performed, which revealed left lower lobe pneumonia with fairly dense consolidation and minor changes on the right, with significant emphysema bilaterally. He continues to have cough and sputum production. He reports some clinical improvement. White blood count has trended down from 18.7 to 13.3. PAST MEDICAL HISTORY: Problem list: 1. Prior tobacco use and COPD. 2. 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 3. Coronary artery disease, status post stenting of the right coronary artery. 4. Status post appendectomy. 5. Diabetes mellitus. 6. Dyslipidemia. SOCIAL HISTORY: Prior tobacco use. Occasional alcohol use. The patient continues to work in Security. FAMILY HISTORY: Noncontributory to our current presentation. REVIEW OF SYSTEMS: As noted in the HPI, but is otherwise negative. PHYSICAL EXAMINATION: General: A well developed, well nourished, white male with a slightly wet cough, resting comfortably and in no distress. Vital Signs: Blood pressure 121/71, heart rate 72, respiratory rate 18, oxygen saturation 94% on 2 L per nasal cannula. HEENT: Pupils are equal and reactive. Oropharynx appears clear. Neck: Supple. Chest: Crackles at the left base. Cardiac: Regular rate and rhythm. Abdomen: Soft. Extremities: Prior left hand amputation. LABORATORIES: Sodium 141, potassium 3.9, chloride 109, bicarbonate 19, BUN 12, creatinine 0.6. Microbiology from sputum culture is pending. CT scan, 11/09/2018, reveals severe emphysematous changes, infiltrate in the right upper lobe and left lower lobe, with small effusions. IMPRESSION: 1. Community-acquired pneumonia. 2. Chronic obstructive pulmonary disease, with prior tobacco use. 3. Acute hypoxemic respiratory failure. 4. Atrial fibrillation, now with sinus bradycardia. RECOMMENDATIONS: 1. Agree with antibiotics. The patient is showing clinical improvement. 2. Await sputum culture results. 3. Discontinue intravenous fluids. The patient is becoming hyperchloremic. 4. Routine bronchial hygiene. cc: MD Sherwin Matthews MD
[2018-11-10] MEDS: ZOCOR PO SCH (22:00)
[2018-11-11] MEDS: DUONEB (A & A) INH SCH ×4 (03:04→21:35)
[2018-11-11 05:54] LABS: BASO# 0.05 X1000 (0.0-0.2); BASO% 0.4 % (0.0-0.8); EOS# 0.41 X1000 (0.0-0.7); EOS% 3.5 % (0.0-10.0); HEMATOCRIT 30.9 % (42.0-52.0); HEMOGLOBIN 10.4 g/dL (14.0-18.0); IMM GRAN# 0.25 X1000 (0.0-0.04); IMM GRAN% 2.1 % (0.0-0.5); LYMPH# 0.96 X1000 (1.2-3.4); LYMPH% 8.1 % (20.5-51.1); MCH 30.2 PG (27-31); MCHC 33.7 g/dL (33-37); MCV 89.8 FL (81-99); MONO% 7.6 % (1.7-9.3); MPV 8.8 FL (7.4-10.4); NEUT# 9.29 X1000 (1.4-6.5); NEUT% 78.3 % (42.2-75.2); PLT 367 X1000 (130-400); RBC 3.44 XMIL (4.7-6.1); RDW 13.3 % (11.5-14.5); WBC 11.86 X1000 (4.8-10.8)
[2018-11-11] MEDS: HUMULIN 70/30 SUBQ SCH ×2 (06:35→17:06)
[2018-11-11] MEDS: HUMALOG SUBQ SCH ×4 (07:34→21:19)
[2018-11-11] MEDS: CARDIZEM CD PO SCH (09:22)
[2018-11-11] MEDS: VALTREX PO SCH ×2 (09:22→21:20)
[2018-11-11] MEDS: ZOLOFT PO SCH (09:22)
[2018-11-11] MEDS: LANOXIN PO SCH (09:22)
[2018-11-11] MEDS: IMDUR PO SCH (09:22)
[2018-11-11] MEDS: PLAVIX PO SCH (09:23)
[2018-11-11] MEDS: ASPIRIN PO SCH (09:23)
[2018-11-11] MEDS: LEVAQUIN 750 MG in NS 150 ML IV SCH (09:23)
[2018-11-11] MEDS: TYLENOL PO PRN ×2 (09:35→15:38)
--- NOTE | 2018-11-11 11:15 | PROGRESS NOTE ---
DATE: 11/11/2018 SUBJECTIVE: Level 3 documentation. A 68-year-old, white gentleman admitted to the hospital with bilobar pneumonia, right upper lobe and left lower lobe. The patient was seen by cement sprayer helper, as well as Dr. Zapata. Interval history was reviewed. The patient is doing very well. REVIEW OF SYSTEMS: None reported. PAST MEDICAL HISTORY: Reviewed. PAST SURGICAL HISTORY: Reviewed. MEDICINES: Reviewed. ALLERGIES: Morphine. EXAMINATION: Vital Signs: Temperature is 99.3, pulse 79, blood pressure 141/62, 2 L nasal cannula 94%. HEENT Exam: The patient has extensive herpes rash on the lower lip. Neck: Supple. Chest: Bilateral air entry. No signs of pneumonitis. Heart: Sounds are regular. Abdomen: Belly is soft, nontender. Extremities: Left forearm was amputated due to trauma. He has status post bilateral club feet surgery. No obvious deficits noted. INVESTIGATIONS: CBC: White cell count 11.86, hematocrit 30.9, platelets 367. Blood sugar 146. Cardiac enzymes were negative. Sputum cultures: Normal mic. No yeast noted. Blood cultures were negative. Influenza screen was negative. Chest x-ray today mostly predominantly right upper lobe pneumonia. I did not see any infiltrate in the left lower lobe. ASSESSMENT AND PLAN: 1. Bilobar pneumonia. He is not up-to-date on pneumonia vaccine. Currently he is on intravenous antibiotics with Levaquin. He needs pneumococcal vaccine before discharge. 2. Paroxysmal atrial fibrillation currently in sinus on Cardizem 120 daily, digoxin 125 mcg daily. He is on isosorbide, aspirin and Plavix. 3. Hyperlipidemia on Zocor 40 mg daily. 4. Right upper lobe pneumonia. Continue on bronchodilators. 5. Reactive depression on Zoloft. 6. Herpes labialis on Valtrex 500 oral twice daily. 7. Depression on Zoloft 100 daily. Continue present treatment. 8. History of coronary artery disease, status post acute myocardial infarction 2003. Currently on aspirin and Plavix and isosorbide. 9. History of penile prosthesis, stable, and will follow up. LEVEL OF DOCUMENTATION: 35 minutes. cc: MD Sherwin Martinez MD
--- NOTE | 2018-11-11 11:21 | Diag Imaging Result Doc PS360 ---
EXAM: CHEST-2 VIEWS - 11/11/2018 HISTORY: pneumonia TECHNIQUE: Chest two views COMPARISON: 11/07/2018 FINDINGS: Heart size is normal. There is left lower lobe consolidation consistent with pneumonia again seen. This appears decreased in the AP projection but stable in the lateral projection compared to prior. There is a small left pleural effusion. There is been development of a small area of consolidation at the right upper lobe which also is compatible with pneumonia. There is no pneumothorax identified. IMPRESSION: Left lower lobe consolidation/pneumonia, which appears stable to mildly decreased compared to prior. New small area of consolidation at right upper lobe, compatible with pneumonia. Electronically signed by Gorge Ribeiro 11/11/2018 11:19 AM
[2018-11-11] MEDS ORDERED: MOTRIN PO PRN (18:22)
[2018-11-11] MEDS: MOTRIN PO PRN (18:25)
[2018-11-11] MEDS: ZOCOR PO SCH (21:20)
--- NOTE | 2018-11-11 21:31 | PULMONOLOGY PROGRESS NOTE ---
DATE: 11/11/2018 SUBJECTIVE: The patient is awake, alert and conversant. He continues to have some cough and sputum production, but this is decreasing. He reports overall he feels better. OBJECTIVE: The patient has been afebrile for the last 24 hours. Blood pressure 127/49, heart rate 65, respiratory rate 18, oxygen saturation 93% on 2 L per nasal cannula. HEENT: Pupils are equal and reactive. Oropharynx appears clear. Neck is supple. Chest reveals crackles at the left base. Cardiac exam: S1, S2. Abdomen is soft and without hepatosplenomegaly. Extremities are without edema. LABORATORY DATA: White blood count has decreased to 11.86, hemoglobin 10.4, platelet count 367,000. DIAGNOSTIC DATA: Chest x-ray reveals slight improvement in the left lower lobe with stable changes on the right, when compared to CT scan of the thorax. IMPRESSION: A 68-year-old with multilobar pneumonia, chronic obstructive pulmonary disease, acute hypoxic respiratory failure, episode of atrial fibrillation. RECOMMENDATIONS: 1. Continue antibiotics. 2. Continue bronchodilators. 3. Recommend followup chest x-ray Tuesday. If he continues to improve, he could be discharged Tuesday morning or Tuesday afternoon. cc: MD Sherwin Matthews MD
[2018-11-12] MEDS: DUONEB (A & A) INH SCH ×4 (03:02→21:16)
[2018-11-12] MEDS ORDERED: INSULIN PEN NEEDLES ONE (05:48)
[2018-11-12 05:56] LABS: BASO# 0.04 X1000 (0.0-0.2); BASO% 0.5 % (0.0-0.8); EOS# 0.39 X1000 (0.0-0.7); EOS% 4.7 % (0.0-10.0); HEMATOCRIT 33.4 % (42.0-52.0); IMM GRAN# 0.32 X1000 (0.0-0.04); IMM GRAN% 3.9 % (0.0-0.5); LYMPH% 9.7 % (20.5-51.1); MCH 29.8 PG (27-31); MCHC 32.9 g/dL (33-37); MCV 90.5 FL (81-99); MONO# 0.67 X1000 (0.11-0.59); MONO% 8.1 % (1.7-9.3); MPV 8.6 FL (7.4-10.4); NEUT# 6.04 X1000 (1.4-6.5); NEUT% 73.1 % (42.2-75.2); PLT 352 X1000 (130-400); RBC 3.69 XMIL (4.7-6.1); RDW 13.4 % (11.5-14.5); WBC 8.26 X1000 (4.8-10.8)
[2018-11-12 06:08] LABS: AGAP 12; ALB/GLOB RATIO 0.6; ALBUMIN 2.2 g/dL (3.5-5.0); ALKALINE PHOSPHATASE 95 U/L (32-122); BUN 12 mg/dL (8-22); CALCIUM 8.2 mg/dL (8.8-10.2); CHLORIDE 106 mmol/L (98-107); COSMO 279; CREATININE 0.6 mg/dL (0.7-1.2); ESTIMATED GFR > 60; GLUCOSE 97 mg/dL (70-104); GOT 105 U/L (10-34); GPT 81 U/L (10-44); MAGNESIUM 1.8 mg/dL (1.5-2.7); PHOSPHORUS 3.5 mg/dL (2.7-4.5); POTASSIUM 3.8 mmol/L (3.5-5.1); SODIUM 140 mmol/L (136-145); TCO2 22 mmol/L (25-35); TOTAL BILIRUBIN 0.49 mg/dL (0.20-1.00); TOTAL PROTEIN 5.7 g/dL (6.3-8.3)
[2018-11-12] MEDS: HUMALOG SUBQ SCH ×4 (06:10→20:38)
[2018-11-12] MEDS: HUMULIN 70/30 SUBQ SCH ×2 (06:10→17:01)
[2018-11-12 07:03] LABS: EOS 2 % (1-10); LYMPHS 16 % (21-51); MONO 2 % (1-9); SEGS 80 % (42-75)
[2018-11-12] MEDS: CARDIZEM CD PO SCH (09:15)
[2018-11-12] MEDS: ASPIRIN PO SCH (09:15)
[2018-11-12] MEDS: PLAVIX PO SCH (09:16)
[2018-11-12] MEDS: LANOXIN PO SCH (09:16)
[2018-11-12] MEDS: IMDUR PO SCH (09:16)
[2018-11-12] MEDS: VALTREX PO SCH ×2 (09:16→20:38)
[2018-11-12] MEDS: LEVAQUIN 750 MG in NS 150 ML IV SCH (09:16)
[2018-11-12] MEDS: ZOLOFT PO SCH (09:16)
[2018-11-12] MEDS: TYLENOL PO PRN ×2 (11:52→19:22)
--- NOTE | 2018-11-12 13:47 | PROGRESS NOTE ---
DATE: 11/12/2018 SUBJECTIVE: The patient is doing better and no other complaints. OBJECTIVE: Vital Signs: Temperature is 97.9 degrees, pulse is 70, blood pressure 143/57, 2 L nasal cannula 92% HEENT: Within normal limits. Neck: Supple. He does have crackles in the left base, known signs of pneumonitis in the right upper lobe. Heart: Sounds are regular. Physical examination, no change. LABORATORIES: White cell count 8.2, hematocrit 33, platelets 352,000. SMA7 is normal. Sugar is 224. LFTs were normal. Microbiology cultures are negative. ASSESSMENT AND PLAN: 1. Bilobar pneumonia and plan is IV Levaquin. Repeat chest x-ray in the morning. 2. Pneumococcal vaccine prior to discharge. 3. Paroxysmal atrial fibrillation. Currently in sinus. Cardizem and Lanoxin. 4. Coronary artery disease, on isosorbide, aspirin, Plavix. 5. Hyperlipidemia, on Zocor. We will repeat the chest x-ray and then if she is stable, will be treated as an outpatient with outpatient antibiotics. LEVEL OF DOCUMENTATION: 25 minutes. cc: MD Sherwin Martinez MD
--- NOTE | 2018-11-12 19:52 | PULMONOLOGY PROGRESS NOTE ---
DATE: 11/12/2018 SUBJECTIVE: The patient reports he feels better. He does have a cough which remains productive. He is sitting in his chair. He is anxious to go home. OBJECTIVE: Vital Signs: The patient has been afebrile for the last 24 hours. He is now on room air. HEENT: Pupils are equal and reactive. Oropharynx is clear. Neck: Supple. Chest: Reveals good air entry bilaterally. Cardiac: Regular rate and rhythm with normal S1, normal S2. Chest: Crackles at the left base with occasional rhonchi. Abdomen: Soft. Extremities: Without edema. LABORATORIES: White blood count 8.26, hemoglobin 11.0, platelet count 352,000. Sputum culture reveals normal mic. IMPRESSION: A 68-year-old with multilobar pneumonia, with chronic obstructive pulmonary disease and acute hypoxemic respiratory failure. The patient continues to improve. RECOMMENDATION: 1. Continue bronchodilators. 2. Continue antibiotics. 3. Consider discharge home if chest x-ray shows clinical improvement tomorrow morning. cc: MD Sherwin Matthews MD
[2018-11-12] MEDS: ZOCOR PO SCH (20:38)
[2018-11-13] MEDS: DUONEB (A & A) INH SCH ×2 (03:12→09:51)
[2018-11-13] MEDS: HUMALOG SUBQ SCH (06:10)
[2018-11-13] MEDS: HUMULIN 70/30 SUBQ SCH (06:25)
[2018-11-13 07:37] VITALS: BP 138/59
[2018-11-13] MEDS: LANOXIN PO SCH (08:40)
[2018-11-13] MEDS: IMDUR PO SCH (08:40)
[2018-11-13] MEDS: VALTREX PO SCH (08:40)
[2018-11-13] MEDS: ASPIRIN PO SCH (08:40)
[2018-11-13] MEDS: CARDIZEM CD PO SCH (08:41)
[2018-11-13] MEDS: ZOLOFT PO SCH (08:41)
[2018-11-13] MEDS: PLAVIX PO SCH (08:41)
[2018-11-13] MEDS: LEVAQUIN 750 MG in NS 150 ML IV SCH (08:41)
--- NOTE | 2018-11-13 09:42 | Diag Imaging Result Doc PS360 ---
EXAM: CHEST-2 VIEWS HISTORY: hypoxia TECHNIQUE: Chest two views COMPARISON: 11/11/2018 FINDINGS: The lungs are hyperexpanded. Increased AP diameter to the chest. There are bilateral infiltrates fairly similar to the prior exam. These are most dense in the left lower lobe. There is a small left pleural effusion. No cardiomegaly. IMPRESSION: Bilateral pneumonia with no interval improvement. Emphysema Electronically signed by Andrews Babb 11/13/2018 9:40 AM
--- NOTE | 2018-11-13 22:47 | DISCHARGE SUMMARY ---
ADMISSION DATE: 11/05/2018 DISCHARGE DATE: 11/13/2018 FINAL DIAGNOSES: 1. Left lower lobe and right upper lobe pneumonia. 2. Diabetes. 3. Atrial fibrillation. 4. Hypertension. DISCHARGE MEDICATIONS: Usual medication at home plus, digoxin 0.125 mg daily, metoprolol 25 mg ER 1 daily, Cardizem-LA 120 mg q.a.m., Levaquin 750 mg (10) 1 daily and Tussionex liquid 1 teaspoon q.12 hours (2 ounces). CONSULTATION: With Dr. Fish and Dr. Zapata. HISTORY: This is the first recent [facility] admission for this 68-year-old, white man, admitted with left lower lobe pneumonia and initially treated with doxycycline and Rocephin. INITIAL LABORATORY: Hemoglobin 11.5, hematocrit 34.3, white blood count 14,000. Sodium 140, potassium 3.8, BUN 12, creatinine 0.6, glucose 88. AST 105, ALT 81, total protein 5.7, albumin 2.2. HOSPITAL COURSE: There was no improvement over about 3 days, and antibiotic was changed to Levaquin. Blood cultures revealed no growth. Sputum culture revealed normal mic. Initial O2 saturation was in the mid 90s. Pneumonia worsened with new infiltrate in the right upper lobe. Nebulizer treatments were added. He has improved over the last couple of days. Chest x-ray shows mild improvement, but persistent left lower lobe and right upper lobe infiltrate. O2 saturation on room air this morning was 90%. He is anxious to go home. He is discharged on the above medications to be seen back in the office on Tuesday for followup. cc: Sherwin Araujo MD
== END 2018-11-13 11:44 | disposition home or self-care (01) | DRG 194 ==
LOC: ED 18:29 → 3N 11-05 01:04 → SUATTDRO 11-05 01:04 → 3S 11-09 19:27
PROVIDERS: ADMIT Family Medicine; ATTEND Family Medicine
CPT/HCPCS: 70450; 71020; 71046; 71250; 80048; 80053; 81001; 82550; 82948; 83735; 83880; 84100; 84145; 84443; 84484; 85025; 85610; 85651; 85730; 86140; 87040; 87070; 87205; 87275; 87276; 87449; 87804; 87899; 90732; 93005; 93010; 93306; 93880; 94640; 94761; 96365; 96366; 99285; A9270; C8929; J0696; J1160; J1650; J1815; J1940; J1956; J7030; J7050; Q9957; XXXXX